=== PATIENT | male | born 1990 | race Caucasian/White ===

== ENCOUNTER → 2022-05-05 11:58 | Outpatient (BNVA) | payer OTHER, SELFPAY | PROVIDERS: Visit Provider Internal Medicine Rheumatology | DX: Z79.899 Other long term (current) drug therapy (principal); K51.00 Ulcerative (chronic) pancolitis without complications; M15.9 Polyosteoarthritis, unspecified; Z71.85 Encounter for immunization safety counseling; K21.9 Gastro-esophageal reflux disease without esophagitis | CPT/HCPCS: 73130; 73630; 99204 ==

== ENCOUNTER → 2022-05-12 08:36 | Outpatient (BNVA) | payer OTHER, SELFPAY | PROVIDERS: Visit Provider Anesthesiology Pain Medicine | DX: G89.29 Other chronic pain (principal); M47.816 Spondylosis without myelopathy or radiculopathy, lumbar region; M51.16 Intervertebral disc disorders with radiculopathy, lumbar region; M79.604 Pain in right leg; M79.605 Pain in left leg | CPT/HCPCS: 99205 ==

== ENCOUNTER 2022-06-20 06:12 | Day surgery (SDC) | payer OTHER, SELFPAY ==
[2022-06-16 09:16] VITALS: BMI 31.0
[2022-06-20 06:39] VITALS: BP 122/81; PULSE 69; RESP 16; TEMP 36.6; O2SAT 98
[2022-06-20] MEDS: sodium chloride 0.9% 1,000 ML 30 ML IV (06:45)
--- NOTE | 2022-06-20 06:58 | ANES.PREANE2 ---
Pre-Anesthetic Assessment Height/Weight: Height 1.75 m Weight 95.254 kg Temp Pulse Resp BP Pulse Ox O2 Del Method 97.8 F 69 16 122/81 98 06/20/22 06:39 06/20/22 06:39 06/20/22 06:39 06/20/22 06:39 06/20/22 06:39 06/20/22 06:39 Preop Diagnosis: UC Operation Date: 06/20/22 07:30 Proposed Procedures p Colonoscopy 66906,K51.00(Not Applicable) - Kush Austin MD Familial anesthetic complications: none Was Beta Zeina taken within 24 hours: N/A Was Clonidine taken within 24 hours: N/A Last intake: Intake Last Liquid Date 06/19/22 Last Liquid Time 23:00 Last Solid Date 06/18/22 Last Solid Time 23:59 Social No alcohol and No tobacco Exam alert and oriented x 3 Airway Submandibular: within normal limits Cervical ROM: within normal limits Mallampati: Class II Dentition: full History/ROS No significant complaints Pulmonary None reported CV/HEM None reported None reported Hepatic None reported GI Gastroesophageal Reflux Disease Metabolic None reported Musc/skel None reported Neuropsych None reported Anesthetic Plan ASA status: 2 Anesthesia: Anesthesia Evaluation and MAC Risk of > 500 ml blood loss (7ml/kg in children): No Medications/Allergies Home Medications Medication Instructions Recorded Confirmed Last Taken Type bupropion HCl 300 mg 24 hr tablet, 300 mg PO QAM 04/26/22 06/16/22 06/19/22 History extended release clonazepam 0.5 mg tablet 0.5 mg PO TID PRN Anxiety 04/26/22 06/16/22 Unknown History cyclobenzaprine 10 mg tablet 5 mg PO TID PRN Muscle Spasm 04/26/22 06/16/22 Unknown History dextroamphetamine-amphetamine ER 25 mg PO QAM 04/26/22 06/16/22 06/19/22 History 25 mg 24hr capsule,extend release diclofenac sodium 1 % topical gel 4 g topical BID 04/26/22 06/16/22 Unknown History (Arthritis Pain (diclofenac)) omega 6-xly-vpw-fish oil 1,000 mg 1 cap PO BID 04/26/22 06/16/22 06/19/22 History (120 mg-180 mg) capsule (Fish Oil) pregabalin 225 mg capsule 225 mg PO BID 04/26/22 06/16/22 06/19/22 History testosterone cypionate 200 mg/mL 200 mg SUBCUT Q4D 04/26/22 06/16/22 06/16/22 History intramuscular oil vedolizumab 300 mg intravenous 300 mg IV .every 8 weeks 04/26/22 06/16/22 Unknown History solution (Entyvio) venlafaxine 37.5 mg 37.5 mg PO DAILY 04/26/22 06/16/22 06/19/22 History capsule,extended release 24 hr certolizumab pegol 400 mg/2 mL 200 mg SUBCUT .[id number] #2 ea 05/05/22 06/16/22 06/01/22 Rx (200 mg/mL x2) subcutaneous syringe kit (Cimzia) acetaminophen 500 mg tablet 500 mg PO Q6H PRN Pain 05/12/22 06/16/22 06/19/22 History (Tylenol Extra Strength) diclofenac sodium 75 mg 75 mg PO BID 05/12/22 06/16/22 06/19/22 History tablet,delayed release multivitamin 1 tab PO DAILY 05/12/22 06/16/22 06/18/22 History pantoprazole 40 mg tablet,delayed 40 mg PO DAILY 06/16/22 06/16/22 06/18/22 History release Allergies Allergy/AdvReac Type Severity Reaction Status Date / Time sulfa drugs Allergy rash Uncoded 06/16/22 09:11 Current Medications Generic Name Dose Route Start Last Admin Trade Name Freq PRN Reason Stop Dose Admin Sodium Chloride 1,000 mls @ 30 mls/hr 06/20/22 06:30 06/20/22 06:45 Sodium Chloride 0.9% IV 06/21/22 06:29 30 mls/hr .Q24H JULITA Administration PFSH Anesthesia Medical History Ankylosing spondylitis of unspecified sites in spine Attention-deficit hyperactivity disorder, unspecified type Chronic back pain Chronic pain syndrome High risk medication use Hyperlipidemia, unspecified Immunization counseling Major depressive disorder, single episode, unspecified Polyarticular arthritis Superior glenoid labrum lesion of left shoulder Testicular hypofunction Ulcerative (chronic) enterocolitis Ulcerative colitis, unspecified, without complications Unspecified hearing loss, unspecified ear Unspecified osteoarthritis, unspecified site Surgical History History of vasectomy S/P arthroscopy of right shoulder Family History Other CAD (coronary artery disease) Cancer Diabetes Hypertension Lung disease Rheumatoid arthritis Denies family history of Lupus Chronic kidney disease (CKD) Stroke Social History Smoking and tobacco status: never smoked Second hand smoke exposure: No Alcohol intake: never History of recent travel: Yes Details: [place] Out of state: Yes Data Anesthesia Cardiac Studies: No Data to Display
--- NOTE | 2022-06-20 07:50 | W.PM.OPSFHP ---
Same Day Surgery H&P Indication for Procedure/HPI DATE OF PROCEDURE: June 20, 2022 CHIEF COMPLAINT/INDICATIONFOR SURGICAL PROCEDURE: UC PREOP DIAGNOSIS: UC PLANNED PROCEDURE: Operation Date: 06/20/22 07:30 Proposed Procedures p Colonoscopy 92237,K51.00(Not Applicable) - Kush Austin MD Medications/Allergies* Home Medications Medication Instructions Recorded Confirmed Type bupropion HCl 300 mg 24 hr tablet, 300 mg PO QAM 04/26/22 06/16/22 History extended release clonazepam 0.5 mg tablet 0.5 mg PO TID PRN Anxiety 04/26/22 06/16/22 History cyclobenzaprine 10 mg tablet 5 mg PO TID PRN Muscle Spasm 04/26/22 06/16/22 History dextroamphetamine-amphetamine ER 25 mg PO QAM 04/26/22 06/16/22 History 25 mg 24hr capsule,extend release diclofenac sodium 1 % topical gel 4 g topical BID 04/26/22 06/16/22 History (Arthritis Pain (diclofenac)) omega 9-nha-lms-fish oil 1,000 mg 1 cap PO BID 04/26/22 06/16/22 History (120 mg-180 mg) capsule (Fish Oil) pregabalin 225 mg capsule 225 mg PO BID 04/26/22 06/16/22 History testosterone cypionate 200 mg/mL 200 mg SUBCUT Q4D 04/26/22 06/16/22 History intramuscular oil vedolizumab 300 mg intravenous 300 mg IV .every 8 weeks 04/26/22 06/16/22 History solution (Entyvio) venlafaxine 37.5 mg 37.5 mg PO DAILY 04/26/22 06/16/22 History capsule,extended release 24 hr acetaminophen 500 mg tablet 500 mg PO Q6H PRN Pain 05/12/22 06/16/22 History (Tylenol Extra Strength) diclofenac sodium 75 mg 75 mg PO BID 05/12/22 06/16/22 History tablet,delayed release multivitamin 1 tab PO DAILY 05/12/22 06/16/22 History pantoprazole 40 mg tablet,delayed 40 mg PO DAILY 06/16/22 06/16/22 History release Allergies/Adverse Reactions Allergy/AdvReac Type Severity Reaction Status Date / Time sulfa drugs Allergy rash Uncoded 06/16/22 09:11 Current Medications: Generic Name Dose Route Start Last Admin Trade Name Freq PRN Reason Stop Dose Admin Sodium Chloride 1,000 mls @ 30 mls/hr 06/20/22 06:30 06/20/22 06:45 Sodium Chloride 0.9% IV 06/21/22 06:29 30 mls/hr .Q24H JULITA Administration Pertinent History/Comorbid Conditions* Medical History (Updated 05/12/22 @ 12:22 by Torres Lea MD) Ankylosing spondylitis of unspecified sites in spine Attention-deficit hyperactivity disorder, unspecified type Chronic back pain Chronic pain syndrome High risk medication use Hyperlipidemia, unspecified Immunization counseling Major depressive disorder, single episode, unspecified Polyarticular arthritis Superior glenoid labrum lesion of left shoulder Testicular hypofunction Ulcerative (chronic) enterocolitis Ulcerative colitis, unspecified, without complications Unspecified hearing loss, unspecified ear Unspecified osteoarthritis, unspecified site Surgical History (Updated 05/05/22 @ 12:03 by Colby Zuniga MD) History of vasectomy S/P arthroscopy of right shoulder Family History (Updated 05/05/22 @ 11:23 by Sharon Black LPN) Rheumatoid arthritis Diabetes CAD (coronary artery disease) Lung disease Cancer Hypertension Denies family history of Lupus Chronic kidney disease (CKD) Stroke Social History Smoking and tobacco status: never smoked Second hand smoke exposure: No Alcohol intake: never History of recent travel: Yes Details: [place] Out of state: Yes Pertinent Exam Findings alert, oriented x 3, clear to auscultation bilaterally, regular rate & rhythm, operative site marked and procedure specific exam findings Recommendations Surgery/Procedure today Coding Level of Care Code 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
[2022-06-20 08:16] VITALS: BP 117/63; PULSE 60; RESP 20; TEMP 36.1; O2SAT 97
[2022-06-20 08:25] VITALS: BP 130/84; PULSE 70; RESP 20; O2SAT 100
--- NOTE | 2022-06-20 09:19 | ANE.PACU2 ---
Inpatient post-anesthesia follow up: Airway intact: Yes Vital signs: Temperature 97.0 F Pulse Rate 70 Respiratory Rate 20 Blood Pressure 130/84 Pulse Oximetry 100 Oxygen Delivery Me thod Room Air Oxygen Flow Rate Fraction of Inspir ed Oxygen Hydration adequate: Yes Nausea and vomiting: No Pain level: 1 Mental status: Baseline
== END 2022-06-20 08:41 | disposition home or self-care (01) ==
PROVIDERS: Visit Provider Internal Medicine
PROC: 0DJD8ZZ Inspection of Lower Intestinal Tract, Via Natural or Artificial Opening Endoscopic (ICD-10-PCS; CPT 45378; principal; 2022-06-20 07:30)
DX: K51.00 Ulcerative (chronic) pancolitis without complications (principal); Z79.899 Other long term (current) drug therapy; E78.5 Hyperlipidemia, unspecified; K21.9 Gastro-esophageal reflux disease without esophagitis
CPT/HCPCS: 45380; 88305; J2704; J7030

== ENCOUNTER 2022-09-13 12:11 | Emergency (ER) | payer OTHER, SELFPAY ==
[2022-09-13 12:15] VITALS: BP 131/82; PULSE 85; RESP 18; TEMP 36.7; O2SAT 96; BMI 31.0
--- NOTE | 2022-09-13 12:35 | W.ED.EPISTAX ---
HPI - Epistaxis General: Chief complaint: Epistaxis Stated complaint: nosebleed Time Seen by Provider: 09/13/22 12:18 Source: patient Mode of arrival: ambulatory Limitations: no limitations History of Present Illness: Patient is a nice 32-year-old male who presents to ED today for evaluation of bleeding from his left nare. Patient states 2 days ago his puppy accidentally scratched him causing his nose to bleed. Patient was able to get the bleeding to subside at home. Patient states today he blew his nose and bleeding began again and he has not been able to get it to stop. He is not on anticoagulation. MD complaint: epistaxis Location: left nostril Onset (ago): hour(s) Duration: constant Context: trauma Associated symptoms: Reports no associated symptoms Review of Systems ENMT: Reports: epistaxis [facility] ED PFSH: Medical History Ankylosing spondylitis of unspecified sites in spine Attention-deficit hyperactivity disorder, unspecified type Chronic back pain Chronic pain syndrome High risk medication use Hyperlipidemia, unspecified Immunization counseling Major depressive disorder, single episode, unspecified Polyarticular arthritis Superior glenoid labrum lesion of left shoulder Testicular hypofunction Ulcerative (chronic) enterocolitis Ulcerative colitis, unspecified, without complications Unspecified hearing loss, unspecified ear Unspecified osteoarthritis, unspecified site Surgical History History of vasectomy S/P arthroscopy of right shoulder Family History Other CAD (coronary artery disease) Cancer Diabetes Hypertension Lung disease Rheumatoid arthritis Denies family history of Lupus Chronic kidney disease (CKD) Stroke Social History Smoking and tobacco status: never smoked Second hand smoke exposure: No Alcohol intake: never History of recent travel: Yes Details: [place] Out of state: Yes Physical Exam Const: COMMON NORMALS: no acute distress, average body habitus, no limitations, healthy appearing, alert and well nourished HENMT: NOSE: Epistaxis present on the left (pt has small capillary bleeding to distal Kiesselbach's plexus) anterior source and active bleeding NOSE IMAGE: 1. can visualize small capillary bed bleeding Neuro: SENSORIUM/ORIENTATION: Yes alert Course Vital Signs: Vital signs: Vital Signs Temperature 98.0 F 09/13/22 12:15 Pulse Rate 85 09/13/22 12:15 Respiratory Rate 18 09/13/22 12:15 Blood Pressure 131/82 09/13/22 12:15 Pulse Oximetry 96 09/13/22 12:15 Oxygen Delivery Me thod 09/13/22 12:15 MDM - Epistaxis Medical Decision Making Bleeding subsided after soaking area/holding pressure with lido/epi soaked gauze and administration of oxymetazoline. Patient was watched for an additional 15 to 20 minutes and bleeding did not resume again. Instructions given at home for administration of Afrin. He was also provided a nasal clamp. Return to ED precautions given. Discharge Plan Discharge Patient Disposition: Home Clinical Impression: Epistaxis Condition: Stable Prescriptions: No Action diclofenac sodium 75 mg tablet,delayed release (DR/EC) 75 mg PO BID acetaminophen [Tylenol Extra Strength] 500 mg tablet 500 mg PO Q6H PRN (Reason: Pain) multivitamin Tablet 1 tab PO DAILY Cimzia 400 mg/2 mL (200 mg/mL x 2) syringe kit 200 mg SUBCUT .[id number] Qty: 2 3RF clonazepam 0.5 mg tablet 0.5 mg PO TID PRN (Reason: Anxiety) cyclobenzaprine 10 mg tablet 5 mg PO TID PRN (Reason: Muscle Spasm) diclofenac sodium [Arthritis Pain (diclofenac)] 1 % gel 4 g topical BID Rx Instructions: apply to single knee, ankle, foot; for foot includes sole/toes/top of foot omega 0-bhc-aua-fish oil [Fish Oil] 1,000 mg (120 mg-180 mg) capsule 1 cap PO BID pregabalin 225 mg capsule 225 mg PO BID dextroamphetamine-amphetamine 25 mg capsule,extended release 24hr 25 mg PO QAM bupropion HCl 300 mg tablet extended release 24 hr 300 mg PO QAM Entyvio 300 mg recon soln 300 mg IV .every 8 weeks testosterone cypionate 200 mg/mL oil 200 mg SUBCUT Q4D venlafaxine 37.5 mg capsule,extended release 24hr 37.5 mg PO DAILY pantoprazole 40 mg tablet,delayed release (DR/EC) 40 mg PO DAILY Rx Instructions: take in AM 30 minutes before meal PO daily; Discharge Orders: Discharge ED (Routine); Ordered 09/13/22 Ordered By: Elena Don Referrals: [facility] [Primary Care Provider] - Patient Instructions: Nosebleed (ED), Epistaxis - Adult Coding Level of Care Code ED 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
[2022-09-13] MEDS: oxymetazoline 0.05% Nasal Spray 15 mL 2 SPRAY NOSTRIL-L (12:51)
== END 2022-09-13 13:30 | disposition home or self-care (01) ==
PROVIDERS: Emergency Provider Physician Assistant
DX: R04.0 Epistaxis (principal); E78.5 Hyperlipidemia, unspecified
CPT/HCPCS: 99283

== ENCOUNTER → 2023-01-24 12:56 | Outpatient (BNVA) | payer OTHER, SELFPAY | PROVIDERS: PCP Nurse Practitioner; Visit Provider Internal Medicine Rheumatology | DX: Z79.899 Other long term (current) drug therapy (principal); M13.0 Polyarthritis, unspecified; K51.00 Ulcerative (chronic) pancolitis without complications; M07.60 Enteropathic arthropathies, unspecified site; Z71.85 Encounter for immunization safety counseling | CPT/HCPCS: 80076; 82565; 85025; 86140; 99214 ==

== ENCOUNTER 2023-06-14 10:57 | Outpatient (CLI) | payer OTHER, SELFPAY ==
[2023-06-14 13:32] LABS: Uric Acid 5.6 mg/dL (3.4-7.0)
== END 2023-06-14 10:58 | disposition home or self-care (01) ==
LOC: LAB 10:59
PROVIDERS: PCP Nurse Practitioner; Visit Provider Internal Medicine Rheumatology
DX: K51.00 Ulcerative (chronic) pancolitis without complications (principal); M07.60 Enteropathic arthropathies, unspecified site; M13.0 Polyarthritis, unspecified; Z79.899 Other long term (current) drug therapy; Z71.85 Encounter for immunization safety counseling
CPT/HCPCS: 36415; 73630; 80076; 82565; 84550; 85025; 86140; 99214

== ENCOUNTER → 2023-10-24 08:57 | Outpatient (BNVA) | payer OTHER, SELFPAY | PROVIDERS: PCP Nurse Practitioner; Visit Provider Nurse Practitioner Family | DX: L72.0 Epidermal cyst (principal); K51.80 Other ulcerative colitis without complications; L91.8 Other hypertrophic disorders of the skin; L81.4 Other melanin hyperpigmentation; D22.61 Melanocytic nevi of right upper limb, including shoulder | CPT/HCPCS: 99203 ==

== ENCOUNTER 2024-07-11 13:05 | Outpatient (CLI) | payer OTHER, SELFPAY ==
--- NOTE | 2024-07-11 13:08 | MR_ITS ---
WS: [id number] MRI LUMBAR SPINE NONCONTRAST HISTORY: Chronic low back pain for 12 years. COMPARISON: None available. TECHNIQUE: Sagittal and axial multisequence imaging is submitted. Disc and osteophyte disease in the cervical spine contacts the ventral cervical cord at C3-4, C4-5 an d C5-6. 2 mm retrolisthesis of L1. Mild disc space narrowing and desiccation. There is a small amount of marrow edema along the adjacent endplates on the LEFT of L4 and L5. Conus terminates normally at L1-2 disc level. L1-L2: Mild annular disc bulging with a tiny RIGHT paracentral disc protrusion. Mild narrowing of the RIGHT subarticular recess. L2-L3: Mild facet and ligamentum flavum hypertrophy. No stenosis. L3-L4: Moderate annular disc bulging, osteophytic ridging and facet disease. Annular fissure is noted . Disc extends asymmetric into the RIGHT foramen. Moderate to severe central with bilateral subarticu lar recess encroachment upon the traversing L4 nerve roots. Moderate RIGHT and mild LEFT foraminal st enosis. Slightly greater encroachment upon the RIGHT exiting L3 nerve root also. L4-L5: Mild annular disc bulging encroaching upon the ventral thecal sac. LEFT foraminal disc protrus ion contacts the exiting LEFT L4 nerve root. There is significant encroachment upon the traversing L5 nerve roots. Marked ligamentum flavum hypertrophy. Moderate to severe bilateral subarticular recess and central stenosis and moderate foraminal stenosis. L5-S1: Mild disc bulging with a broad-based central disc protrusion extending into the subarticular r ecesses greater contact on the RIGHT S1 nerve root. Both S1 nerve roots are being contacted by disc d isease. Moderate central and bilateral subarticular recess stenosis. Mild foraminal stenosis. MR/MR lumbar spine wo con* [id number] IMPRESSION: 1. L3-4: Moderate to severe central with bilateral subarticular recess stenosi s. Moderate RIGHT and mild LEFT foraminal stenosis. Disc contacts the traversin g L4 nerve roots and greater encroachment upon the RIGHT exiting L3 nerve root. 2. L4-5: Moderate to severe central and bilateral subarticular recess stenosis . Moderate bilateral foraminal stenosis. There is contact on both the L4 and L5 nerve roots. 3. L5-S1: Moderate central with bilateral subarticular recess stenosis and mil d foraminal stenosis. Greater disc contact on the RIGHT S1 nerve root. 4. L1-2: Mild RIGHT subarticular recess narrowing.
== END 2024-07-11 13:06 | disposition home or self-care (01) ==
LOC: RAD 13:06
PROVIDERS: PCP Nurse Practitioner; Visit Provider Nurse Practitioner
DX: M99.63 Osseous and subluxation stenosis of intervertebral foramina of lumbar region (principal); M25.78 Osteophyte, vertebrae; M51.26 Other intervertebral disc displacement, lumbar region
CPT/HCPCS: 72148

== ENCOUNTER → 2024-11-14 10:21 | Outpatient (BNVA) | payer OTHER, SELFPAY | PROVIDERS: PCP Nurse Practitioner; Visit Provider Internal Medicine Rheumatology | DX: K51.00 Ulcerative (chronic) pancolitis without complications (principal); Z79.899 Other long term (current) drug therapy; Z71.85 Encounter for immunization safety counseling; M07.60 Enteropathic arthropathies, unspecified site | CPT/HCPCS: 36415; 80076; 82565; 85025; 85651; 86140; 99214 ==

== ENCOUNTER → 2025-03-25 10:39 | Outpatient (BNVA) | payer OTHER, SELFPAY | PROVIDERS: PCP Nurse Practitioner; Visit Provider Internal Medicine Rheumatology | DX: K51.00 Ulcerative (chronic) pancolitis without complications (principal); Z79.899 Other long term (current) drug therapy; Z71.85 Encounter for immunization safety counseling; M07.60 Enteropathic arthropathies, unspecified site | CPT/HCPCS: 36415; 80076; 82306; 82565; 85025; 85651; 86140; 86480; 86704; 86803; 87340; 99214 ==